=== PATIENT | female | born 1965 | race American Indian/Alaskan Native ===

== ENCOUNTER 2021-11-13 21:54 | Observation (INO) | payer BC ==
[2021-11-13] MEDS ORDERED: FAMOTIDINE 20 MG/2 ML INJ IV ONE (22:01)
[2021-11-13] MEDS ORDERED: EPINEPHrine/PF 1 MG/1 ML INJ IM ONE (22:01)
[2021-11-13] MEDS ORDERED: diphenhydrAMINE 50 MG/ML VIAL IV ONE (22:01)
[2021-11-13] MEDS ORDERED: methylPREDNISolone Sod Succinate 125 MG/2 ML INJ IV ONE (22:01)
--- NOTE | 2021-11-13 22:06 | Event Note ---
ED Screening Note Date of service: 11/13/21 Time: 22:04 ED Screening Note: Patient is a 56-year-old -[place] female with no past medical history presented to the ED with complaint of acute onset persistent tongue swelling, dysphagia and mild sore throat for the last 1 hour after eating a tuna sandwich. Patient states that she initially started feeling mild sore throat with mild dysphagia and she decided to go to sleep but started feeling some pressure in her mouth, and when she looked she realized that her tongue was swelling significantly and decided come to the ED. Patient states that she has never had any food allergy before, and also states that nothing else has changed in her lifestyle. Patient denies dizziness, syncope, nausea and vomiting, abdominal pain, cough, swollen lips, facial swelling, wheezing, shortness of breath or chest pain, diarrhea, fever and chills. This initial assessment/diagnostic orders/clinical plan/treatment(s) is/are subject to change based on patients health status, clinical progression and re- assessment by fellow clinical providers in the ED. Further treatment and workup at subsequent clinical providers discretion. Patient/guardian urged not to elope from the ED as their condition may be serious if not clinically assessed and managed. Initial orders include: Solu-Medrol 125 IV x1, Benadryl 50 mg IV x1, Pepcid 20 mg IV x1, equipment monitor phototypesetting, nasal cannula oxygen at 2 L/min, epinephrine 0.5 mg intramuscular injection x1.,
--- NOTE | 2021-11-13 22:23 | Emergency Department Report ---
HPI - General Chief Complaint: Allergic Reaction Time Seen by Provider: 11/13/21 22:11 - HPI HPI: 56-year-old -Iranian female presents to the emergency department with a complaint of swelling of her tongue, mild dysphagia, and a mild sore throat that started about 1 hour after eating a tuna sandwich this evening. Initially she just had the mild dysphagia and sore throat and tried to go to sleep but felt like there was an abnormal sensation inside of her mouth and then realized that her tongue was swollen. Patient says that she is eaten multiple 2 to sandwiches previously without any problems. She also says that she has been having a few days of some intermittent hives. She took 50 mg of Benadryl prior to presentation this evening. The patient recently was prescribed some Tessalon Perles by her PCP on a virtual visit for recent cough. She says that the Tessalon Perles caused her to have a headache and therefore she has not taken them in about 24 hours. Otherwise she denies any past medical history. No recent travel or sick contacts at home. ED Past Medical Hx - Past Medical History Previous Medical History?: No - Surgical History Additional Surgical History: HYSTERECTOMY ED Review of Systems ROS: Stated complaint: ALLERGIC REACTION Other details as noted in HPI Comment: All other systems reviewed and negative Constitutional: denies: chills, fever Eyes: denies: eye pain, vision change ENT: throat pain, other (Tongue swelling). denies: ear pain Respiratory: denies: cough, shortness of breath Cardiovascular: denies: chest pain, palpitations Gastrointestinal: denies: abdominal pain, vomiting Genitourinary: denies: dysuria, discharge Musculoskeletal: denies: back pain, arthralgia Skin: denies: rash, lesions Neurological: denies: headache, weakness Physical Exam - Physical Exam Vital Signs: Vital Signs 11/13/21 21:56 Temperature 98.3 F Pulse Rate 95 H Respiratory 18 Rate Blood Pressure 157/104 O2 Sat by Pulse 94 Oximetry Physical Exam: GENERAL: The patient is well-developed well-nourished. HENT: Normocephalic. Atraumatic. Patient has moist mucous membranes. The ri ght side of the tongue is moderately swollen. No lesions seen on the tongue. There is no tonsillar hypertrophy, erythema or exudates. No drooling or trismus. Normal voice. EYES: Extraocular motions are intact. NECK: Supple. Trachea is midline. CHEST/LUNGS: Clear to auscultation. There is no respiratory distress noted. HEART/CARDIOVASCULAR: Regular. There is no tachycardia. There is no murmur. ABDOMEN: Abdomen is soft, nontender. Patient has normal bowel sounds. SKIN: Skin is warm and dry. NEURO: The patient is awake, alert, and oriented. The patient is cooperative. Cranial nerves II through XII grossly intact. MUSCULOSKELETAL: There is no tenderness or deformity. There is no limitation range of motion. ED Course Vital Signs 11/13/21 21:56 Temperature 98.3 F Pulse Rate 95 H Respiratory 18 Rate Blood Pressure 157/104 O2 Sat by Pulse 94 Oximetry ED Medical Decision Making - Medical Decision Making This patient presents to the emergency department with what appears to be an allergic reaction causing swelling of her tongue. On examination there is moderate swelling to the right side of the tongue. I can see the posterior oropharynx on examination. She does not appear to have any drooling or trismus. No respiratory distress. She took Benadryl prior to arrival, so the patient was given IV Solu-Medrol and Pepcid, and subcutaneous epinephrine. She was later given some IV fluid resuscitation. She has been reevaluated multiple times over multiple hours and there has been no worsening of her symptoms, but there is also been no improvement in the tongue swelling. For this reason the patient will be admitted to the hospital for further evaluation and monitoring. Critical care attestation.: If time is entered above; I have spent that time in minutes in the direct care of this critically ill patient, excluding procedure time. ED Disposition Clinical Impression: Angioedema of tongue, Allergic reaction Disposition: ADMITTED INPATIENT Is pt being admited?: Yes Condition: Fair Time of Disposition: 00:57
[2021-11-13] MEDS ORDERED: SODIUM CHLORIDE 0.9% 1000 ML 1,000 ML IV ONE (23:53)
[2021-11-14 01:02] LABS: Basophils % (Auto) 0.5 % (0.0-1.8); Eosinophils % (Auto) 0.1 % (0.0-4.3); Hematocrit 46.1 % (30.3-42.9); Hemoglobin 15.1 gm/dl (10.1-14.3); Lymphocytes # (Auto) 1.6 K/mm3 (1.2-5.4); Lymphocytes % (Auto) 16.2 % (13.4-35.0); Mean Corpuscular HGB Conc 33 % (30-34); Mean Corpuscular Volume 86 fl (79-97); Monocytes # (Auto) 0.3 K/mm3 (0.0-0.8); Monocytes % (Auto) 3.4 % (0.0-7.3); Platelet Count 513 K/mm3 (140-440); Red Blood Count 5.35 M/mm3 (3.65-5.03); Red Cell Distribution Width 13.8 % (13.2-15.2)
[2021-11-14 01:17] LABS: BUN/Creatinine Ratio 11; Blood Urea Nitrogen 9 mg/dL (7-17); Hemolysis Index 20
[2021-11-14] MEDS ORDERED: ONDANSETRON 4 MG/2 ML INJ IV PRN (02:20)
[2021-11-14] MEDS ORDERED: ACETAMINOPHEN 325 MG TAB PO PRN (02:20)
[2021-11-14] MEDS ORDERED: MORPHINE 2 MG/1 ML INJ IV PRN (02:20)
[2021-11-14] MEDS ORDERED: MORPHINE 4 MG/1 ML INJ IV PRN (02:20)
[2021-11-14] MEDS ORDERED: MAGNESIUM HYDROXIDE (MOM) ORAL LIQD UDC PO PRN (02:20)
--- NOTE | 2021-11-14 02:28 | History and Physical Report ---
History of Present Illness Date of examination: 11/14/21 Date of admission: 11/14/21 00:57 Chief complaint: Tongue Swelling History of present illness: 56-year-old -Monegasque female with no significant past medical history presents to the emergency room today complaining of tongue swelling and difficulty swallowing with some sore throat. Symptoms were said to have started after eating a tuna sandwich earlier in the day. She denies having similar symptoms in the past. She has had multiple sandwiches including tuna in the past without any adverse reactions. Patient indicates that she was placed on Tessalon Perles by her primary care physician for mild cough few days ago. She has since discontinued the medication since it gave her some headache. Patient denies any fever or chills, no chest pain or shortness of breath, no nausea vomiting, no diarrhea, no abdominal pain. She denies any sick contacts and no recent travel. Denies any contact with anyone with COVID-19. Prior to presenting in the emergency room patient had taking some Benadryl for some hives she has been having over the past few days. Upon arrival in the emergency room patient has received Solu-Medrol, epinephrine and Pepcid with some improvement. Work-up in the emergency room has been unremarkable. Past History Past Medical History: No medical history Past Surgical History: hysterectomy Social history: no significant social history Family history: no significant family history Medications and Allergies Allergies Allergy/AdvReac Type Severity Reaction Status Date / Time No Known Allergies Allergy Verified 11/13/21 22:01 Active Meds: Active Medications Acetaminophen (Acetaminophen 325 Mg Tab) 650 mg PO Q4H PRN PRN Reason: Pain MILD(1-3)/Fever >100.5/FLORES Heparin Sodium (Porcine) (Heparin 5,000 Unit/1 Ml Vial) 5,000 unit SUB-Q Q8HR KLARISSA Sodium Chloride (Nacl 0.9% 1000 Ml) 1,000 mls @ 250 mls/hr IV ONCE ONE Stop: 11/14/21 03:52 Last Admin: 11/14/21 01:18 Dose: 250 mls/hr Documented by: Sodium Chloride (Nacl 0.9% 1000 Ml) 1,000 mls @ 75 mls/hr IV DIRECT KLARISSA Magnesium Hydroxide (Magnesium Hydroxide (Mom) Oral Liqd Udc) 30 ml PO Q4H PRN PRN Reason: Constipation Morphine Sulfate (Morphine 2 Mg/1 Ml Inj) 2 mg IV Q4H PRN PRN Reason: Pain, Moderate (4-6) Morphine Sulfate (Morphine 4 Mg/1 Ml Inj) 4 mg IV Q4H PRN PRN Reason: Pain , Severe (7-10) Ondansetron HCl (Ondansetron 4 Mg/2 Ml Inj) 4 mg IV Q8H PRN PRN Reason: Nausea And Vomiting Sodium Chloride (Sodium Chloride 0.9% 10 Ml Flush Syringe) 10 ml IV BID KLARISSA Sodium Chloride (Sodium Chloride 0.9% 10 Ml Flush Syringe) 10 ml IV PRN PRN PRN Reason: LINE FLUSH Review of Systems Constitutional: no fever, no chills Ears, nose, mouth and throat: swelling in throat, other (Tongue swelling), no nasal congestion, no sore throat Cardiovascular: no chest pain, no palpitations Respiratory: no cough, no shortness of breath Gastrointestinal: no abdominal pain, no nausea, no vomiting, no diarrhea Genitourinary Female: no pelvic pain, no flank pain, no dysuria, no hematuria Musculoskeletal: no neck pain, no low back pain Integumentary: no rash, no pruritis Neurological: no headaches, no confusion Psychiatric: no anxiety, no depression Endocrine: no polyphagia, no polydipsia, no polyuria Exam - Constitutional Vitals: Temp Pulse Resp BP Pulse Ox 98.3 F 87 17 140/93 95 11/13/21 21:56 11/13/21 22:42 11/13/21 22:42 11/13/21 22:42 11/13/21 22:42 General appearance: Present: no acute distress, well-nourished, obese - EENT Eyes: Present: PERRL, EOM intact. Absent: scleral icterus ENT: hearing intact, clear oral mucosa, dentition normal, other (Right-sided tongue swelling) - Neck Neck: Present: supple, normal ROM - Respiratory Respiratory effort: normal Respiratory: bilateral: CTA - Cardiovascular Rhythm: regular Heart Sounds: Present: S1 & S2. Absent: gallop, systolic murmur, diastolic murmur, rub, click - Extremities Extremities: no ischemia, pulses intact, pulses symmetrical, No edema, Full ROM Peripheral Pulses: within normal limits - Abdominal General gastrointestinal: Present: soft, non-tender, non-distended, normal bowel sounds. Absent: mass - Integumentary Integumentary: Present: clear, warm, dry. Absent: rash - Musculoskeletal Musculoskeletal: strength equal bilaterally - Psychiatric Psychiatric: appropriate mood/affect, intact judgment & insight, memory intact, cooperative - Neurologic Neurologic: CNII-XII intact, no focal deficits, moves all extremities Results - Labs CBC & Chem 7: 11/14/21 00:36 11/14/21 00:36 Labs: Abnormal lab results 11/14/21 11/14/21 Range/Units 00:36 00:36 RBC 5.35 H (3.65-5.03) M/mm3 Hgb 15.1 H (10.1-14.3) gm/dl Hct 46.1 H (30.3-42.9) % Plt Count 513 H (140-440) K/mm3 Seg Neutrophils % 79.8 H (40.0-70.0) % Seg Neutrophils # 7.9 H (1.8-7.7) K/mm3 Chloride 95.6 L (98-107) mmol/L Glucose 177 H (65-100) mg/dL Assessment and Plan - Patient Problems (1) Angioedema of tongue Current Visit: Yes Status: Acute Plan to address problem: Patient has received Solu-Medrol, Pepcid and epinephrine with some improvement. We will monitor on telemetry. (2) Allergic reaction Current Visit: Yes Status: Acute Plan to address problem: We will place patient on Benadryl as needed. (3) DVT prophylaxis Current Visit: Yes Status: Acute Plan to address problem: Patient placed on subcutaneous heparin. (4) Full code status Current Visit: Yes Status: Acute Plan to address problem: Patient is a full code.
[2021-11-14] MEDS ORDERED: SODIUM CHLORIDE 0.9% 1000 ML 1,000 ML IV SCH (02:30)
[2021-11-14] MEDS: HEPARIN 5,000 UNIT/1 ML VIAL SUB-Q SCH ×2 (06:46→14:37)
--- NOTE | 2021-11-14 13:06 | Discharge Summary ---
Providers - Providers Date of Admission: 11/14/21 00:57 Attending physician: TATIANA ESPARZA MD Primary care physician: [facility] Hospitalization Condition: Fair Exam - Constitutional Vitals: Temp Pulse Resp BP Pulse Ox 98.3 F 99 H 14 142/86 96 11/13/21 21:56 11/14/21 08:30 11/14/21 08:30 11/14/21 08:30 11/14/21 08:30 Plan Care Plan Goals: Unfortunately we are unable to tell you what exactly caused this reaction. You should avoid any of the foods, fabrics or pollens that you know you have come in contact with around the time of your reaction. You should schedule an appointment with an ecotherapist as soon as possible. One option is [facility] at [phone] ([employer]), they have several locations in the area. To be sure which providers are covered by your insurance, it is best to call and find an [facility] in your network. If your symptoms redevelop, please return to the emergency department as swelling of the mouth and tongue can be life-threatening. Please finish the steroid taper and fiber picker your EpiPen. Follow up with: PRIMARY CARE, [Primary Care Provider] - 3-5 Days Prescriptions: Cetirizine HCl [All Day Allergy Relief] 10 mg PO QDAY PRN #30 cap PRN Reason: Allergy Symptoms EPINEPHrine [Epipen] 0.3 mg IJ ONCE PRN #1 each PRN Reason: Allergic Reaction Prednisone [predniSONE 10 mg (6-Day Pack, 21 Tabs)] 10 mg PO .TAPER 6 Days #1 each
[2021-11-14 14:39] VITALS: BP 121/70
== END 2021-11-14 14:38 | disposition home or self-care (01) ==
LOC: ED 21:54 → 3A 11-14 00:57 → 4A 11-14 02:25
PROVIDERS: ADMIT Internal Medicine Geriatric Medicine; ATTEND Student in an Organized Health Care Education/Training Program
DX: T78.40XA Allergy, unspecified, initial encounter (principal); T78.3XXA Angioneurotic edema, initial encounter; R13.10 Dysphagia, unspecified; Z90.710 Acquired absence of both cervix and uterus; Z79.899 Other long term (current) drug therapy; Z98.890 Other specified postprocedural states
CPT/HCPCS: 36415; 80048; 85025; 96361; 96372; 96374; 96375; 99284; G0378; J0171; J1200; J1644; J2930; J3490; J7030; Q0162